=== PATIENT | male | born 1990 | race Caucasian/White ===

== ENCOUNTER 2018-02-04 14:29 | Emergency (ER) | payer OTHER ==
[~2018-02-04] VITALS: Ht 172.7 cm; Wt 93.0 kg
[~2018-02-04 14:29] MED LIST: OMEPRAZOLE20 M2 PO
[2018-02-04 14:44] VITALS: BP 127/75
== END 2018-02-04 15:21 | disposition admitted as inpatient to this hospital (09) ==
LOC: ERH 14:29
DX: R07.9 Chest pain, unspecified (principal)
CPT/HCPCS: 93005; 93010; 99281